=== PATIENT | male | born 1990 | race Caucasian/White ===

== ENCOUNTER 2018-05-25 19:57 | Emergency (ER) | payer OTHER ==
[~2018-05-25] VITALS: Ht 167.6 cm; Wt 81.6 kg
[2018-05-25 20:24] VITALS: BP 137/76
--- NOTE | 2018-05-25 21:14 | ER.PDOC ---
General Chief Complaint: Cough/Congestion Stated Complaint: COUGH,CONGESTION Time seen by MD: 21:05 Source: patient Exam Limitations: no limitations History of Present Illness Initial Comments Pt presents with cough, hoarseness which got worse the last two days, but, has been going on for three weeks Timing/Duration: gradual Severity: moderate Associated Symptoms: cough, productive cough Allergies: Coded Allergies: No Known Allergies (Unverified , 05/25/18) Constitutional: no symptoms reported EENTM: no symptoms reported Respiratory: see HPI, cough Cardiovascular: no symptoms reported Gastrointestinal: no symptoms reported Genitourinary: no symptoms reported Musculoskeletal: no symptoms reported Skin: no symptoms reported Psychiatric/Neurological: no symptoms reported Endocrine: no symptoms reported Hematologic/Lymphatic: no symptoms reported Past Medical History Medical History: no pertinent history Surgical History: no surgical history Social History Smoking: greater than 1 pack/day Alcohol Use: occassionally Drug Use: marijuana Physical Exam General Appearance: alert, no distress Eye: eyes nml inspection, lids & conjunct. nml, PERRL, no nystagmus Ear: ear nml Nose: nose nml Throat: pharynx nml, airway nml Neck: nml inspection, supple Respiratory: rhonchi (bilaterally) Abdomen: non-tender, no organomegaly CVS: reg rate & rhythm, heart sounds nml Skin: color nml, no rash, warm/dry Extremities: non-tender, nml ROM, no pedal edema NEURO/PSYCH: oriented x 3, CN's nml as tested, motor nml, sensation nml, mood/ affect nml Departure Time of Disposition: 21:12 Disposition: 01 HOME, SELF-CARE Impression: Primary Impression: Acute bronchitis Additional Impression: Acute respiratory infection Condition: Stable Patient Instructions: Bronchitis, [id number], Cough, Adult, [id number] Referrals: PCP,UNKNOWN (PCP) PRIMARY CARE PROVIDER Duration or Time Spent with Pa: DEONTE SHAFER MD May 25, 2018 21:13
--- NOTE | 2018-05-25 21:19 | NUR ---
RAD Radiology at patients bedside
[2018-05-25 21:20] VITALS: BP 137/76
--- NOTE | 2018-05-25 21:39 | DIREP ---
PROCEDURE:CHEST X-RAY, AP PORTABLE COMPARISON:None. INDICATIONS:Cough, SOB FINDINGS: LUNGS/PLEURA:No significant pulmonary parenchymal abnormalities. No effusions. VASCULATURE:Normal. Unremarkable pulmonary vasculature. CARDIAC:Normal. No cardiac silhouette abnormality or cardiomegaly. MEDIASTINUM:Normal. No visible mass or adenopathy. BONES:Normal. No fracture or visible bony lesion. OTHER:Negative. CONCLUSION: No cardiopulmonary abnormality is identified. Dictated by: Chad Zaman MD on 05/25/2018 at 09:38 PM
== END 2018-05-25 21:23 | disposition home or self-care (01) ==
LOC: ER 19:57
DX: J20.9 Acute bronchitis, unspecified (principal); F17.200 Nicotine dependence, unspecified, uncomplicated; F12.10 Cannabis abuse, uncomplicated
CPT/HCPCS: 71045; 99283

== ENCOUNTER 2018-11-12 12:42 | Emergency (ER) | payer OTHER ==
[~2018-11-12] VITALS: Ht 167.6 cm; Wt 83.9 kg
[2018-11-12 12:58] VITALS: BP 145/77
--- NOTE | 2018-11-12 12:59 | NUR ---
ARRIVAL PATIENT ARRIVED TO ED6 AMBULATORY, C/O OF POSSIBLE INSECT BITE TO THE LEFT ARM FOR THE PAST 2 DAYS, CAME TO THE ED FOR FURTHER EVAL.
--- NOTE | 2018-11-12 13:09 | ER.PDOC ---
General Chief Complaint: Skin Rash/Abscess Stated Complaint: INSECT BITE Time seen by MD: 13:00 Source: patient Exam Limitations: no limitations History of Present Illness Timing/Duration: 24 hours Location: neck, LUE Quality: painful Prior symptoms/Treatment: Similar symptoms previous Allergies: Coded Allergies: No Known Allergies (Unverified , 05/25/18) Past Medical History Medical History: no pertinent history Surgical History: no surgical history Social History Smoking: non-smoker Alcohol Use: none Drug Use: none Reviewed Nursing Reviewed: Vital Signs, Abn. Noted All Other Systems: Reviewed and Negative Physical Exam General Appearance: alert, no distress Skin: warm/dry, nml color, with erythema, lesion Location: neck Character: asymmetric With: warmth, tenderness Extremities: non-tender, nml ROM, no edema EENT: eyes nml inspection, lips/gums nml, pharynx nml Neck: trachea midline, no swelling Respiratory: no resp. distress, breath sounds nml CVS: reg. rate & rhythm, heart sounds nml Abdomen: non-tender, no organomegaly Rectal: non-tender Departure Time of Disposition: 13:33 Disposition: 01 HOME, SELF-CARE Impression: Primary Impression: Soft tissue infection Condition: Stable Referrals: PCP,UNKNOWN (PCP) PRIMARY CARE PROVIDER Duration or Time Spent with Pa: 20 MIN DINO HENSON MD Nov 12, 2018 13:09
[2018-11-12 13:28] VITALS: BP 145/77
== END 2018-11-12 13:25 | disposition home or self-care (01) ==
LOC: ER 12:42
DX: L08.9 Local infection of the skin and subcutaneous tissue, unspecified (principal); L53.9 Erythematous condition, unspecified
CPT/HCPCS: 99283